=== PATIENT | female | born 1935 | race American Indian/Alaskan Native ===

== ENCOUNTER 2017-08-19 17:00 | Inpatient (IN) | payer OTHER, MEDICARE ==
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
[2017-08-19] MEDS ORDERED: Oxycodone/Acetaminophen 5/325 mg Tab PO STA (17:21)
[2017-08-19] MEDS ORDERED: Morphine 4 mg/ml ISec IVP STA (19:15)
[2017-08-19] MEDS ORDERED: Morphine 4 mg/ml ISec ONE (19:22)
[2017-08-19 19:54] LABS: BASO # 0.02 K/mm3 (0.0-2.0); BASO % 0.3 % (0.0-3.0); EOS % 0.5 % (1.5-5.0); GRAN # 4.91 (1.4-6.5); GRAN % 75.8 % (50.0-68.0); HEMOGLOBIN 11.5 g/dL (12.0-16.0); LYMPH # 1.2 (1.2-3.4); LYMPH % 18.8 % (22.0-35.0); MEAN CELL VOLUME 82.7 fl (80.0-105.0); MEAN CORPUSCULAR HEMOGLOBIN 28.5 pg (25.0-35.0); MEAN CORPUSCULAR HGB CONC 34.4 g/dl (31.0-37.0); MEAN PLATELET VOLUME 11.1 fl (7.0-11.0); MONO # 0.3 (0.1-0.6); MONO % 4.6 % (1.0-6.0); RBC 4.04 10^6/uL (3.5-6.1); RED CELL DISTRIBUTION WIDTH 14.3 % (11.5-14.5); WHITE BLOOD COUNT 6.5 10^3/ul (4.5-11.0)
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
[2017-08-19 20:12] LABS: ALB/GLOB RATIO 1.3 (1.1-1.8); ALBUMIN 4.4 g/dL (3.0-4.8); ALT/SGPT 30 U/L (7-56); AST/SGOT 35 U/L (14-36); BLOOD UREA NITROGEN 25 mg/dL (7-21); CALCIUM 10.1 mg/dL (8.4-10.5); GFR AFRICAN-AMERICAN > 60; GFR NON-AFRICAN AMERICAN > 60
[2017-08-19 20:28] LABS: INR 1.03 (0.93-1.08); PARTIAL THROMBOPLASTIN TIME 25.7 Seconds (25.1-36.5); PROTHROMBIN TIME 11.7 SECONDS (9.4-12.5)
--- NOTE | 2017-08-19 23:04 | CT ---
EXAM: CT Abdomen and Pelvis With Intravenous Contrast EXAM DATE/TIME: 08/19/2017 7:33 PM CLINICAL HISTORY: The patient age is 81 years old and is female; Pain; Abdominal pain; Acute; Additional info: Abdominal pain S/P [facility] Facility exam id and description: Ct abdpelciv abd pelvis iv contrast only TECHNIQUE: Axial computed tomography images of the abdomen and pelvis with intravenous contrast. All CT scans at this facility use one or more dose reduction techniques, viz.: automated exposure control; ma/kV adjustment per patient size (including targeted exams where dose is matched to indication; i.e. head); or iterative reconstruction technique. Coronal and sagittal reformatted images were created and reviewed. CONTRAST: 100 mL of OMNI 350 administered intravenously. COMPARISON: DX - HIP AVINASH W/WO PELVIS 3-4 VIEWS 2017-08-19 18:36 FINDINGS: Lower thorax: There is a small pericardial effusion. Atelectatic change is visualized at the left lung base. ABDOMEN: Liver: There is an area of low density within the medial aspect of the right hepatic lobe measuring 2.0 cm in length. In the setting of trauma, this is suggestive of a grade II hepatic laceration. A hepatic mass is also considered. Also within the right hepatic lobe, there is a 5 mm hypodense lesion, which is too small to characterize further. There is no visualized subcapsular hematoma involving the liver. Gallbladder and bile ducts: The gallbladder is distended with gallstones. Pancreas: Normal contour, without acute peripancreatic stranding. Spleen: No splenic laceration visualized. Adrenals: No mass. Kidneys and ureters: No hydronephrosis. No solid mass. Stomach and bowel: Sigmoid diverticula are identified, without acute inflammatory stranding of the adjacent mesentery. Appendix: The appendix is not visualized. PELVIS: Bladder: No mass. Reproductive: See below. ABDOMEN and PELVIS: Intraperitoneal space: There is a small amount of free fluid within the right posterior pelvis and right adnexa. Bones/joints: There is a fracture the right femoral neck with angulation of fracture fragments. Hypertrophic degenerative changes are noted within the spine. There is angulation of the distal sacrum, without a visualized acute fracture. Vasculature: There is no aneurysm or dissection of the aorta. Mild atherosclerotic changes are visualized. Lymph nodes: No enlarged lymph nodes. IMPRESSION: 1. There is an area of low density within the medial aspect of the right hepatic lobe measuring 2.0 cm in length. In the setting of trauma, this is suggestive of a grade II hepatic laceration. A hepatic mass is also considered. A follow-up abdominal/pelvis CT is recommended. 2. There is a fracture the right femoral neck with angulation of fracture fragments. 3. The gallbladder is distended with gallstones. 4. Diverticulosis. 5. There is a small amount of free fluid within the right posterior pelvis. 6. There is a small pericardial effusion. 7. Additional CT findings described above.
[2017-08-20] MEDS ORDERED: Dextrose 5%/0.45% NS 1,000 ML IV SCH ×2 (01:45→19:11)
[2017-08-20 02:01] VITALS: BMI 22.8
[2017-08-20 05:35] LABS: URINE BILIRUBIN NEGATIVE (NEGATIVE); URINE BLOOD TRACE-INTACT (NEGATIVE); URINE GLUCOSE (UA) NEGATIVE (NEGATIVE); URINE LEUKOCYTE ESTERASE NEGATIVE Leu/uL (NEGATIVE); URINE NITRATE NEGATIVE (NEGATIVE); URINE PROTEIN NEGATIVE mg/dL (<30 mg/dL); URINE UROBILINOGEN 0.2 E.U./dL (<1 E.U./dL)
[2017-08-20 05:36] LABS: URINE APPEARANCE CLEAR (CLEAR); URINE COLOR YELLOW (YELLOW)
[2017-08-20 05:56] LABS: URINE EPITHELIAL CELLS 0 - 2 /hpf (0-5); URINE RBC 0 - 2 /hpf (0-2); URINE WBC 0 - 2 /hpf (0-6)
--- NOTE | 2017-08-20 08:47 | RAD ---
PROCEDURE: Pelvis bilateral hips HISTORY: right hip pain COMPARISON: August 18, 2017. CT abdomen pelvis including hips TECHNIQUE: Standard protocol for this study/examination. FINDINGS: Subcapital fracture proximal right femur with impaction and angulation. Preserved femoral acetabular relationship. IMPRESSION: Subcapital fracture proximal right femur.
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
[2017-08-20 08:49] LABS: BASO # 0.02 K/mm3 (0.0-2.0); BASO % 0.1 % (0.0-3.0); EOS % 0.1 % (1.5-5.0); GRAN # 13.06 (1.4-6.5); GRAN % 91.8 % (50.0-68.0); LYMPH # 0.8 (1.2-3.4); LYMPH % 5.3 % (22.0-35.0); MEAN CELL VOLUME 81.4 fl (80.0-105.0); MEAN CORPUSCULAR HEMOGLOBIN 28.1 pg (25.0-35.0); MEAN CORPUSCULAR HGB CONC 34.5 g/dl (31.0-37.0); MEAN PLATELET VOLUME 10.3 fl (7.0-11.0); MONO # 0.4 (0.1-0.6); MONO % 2.7 % (1.0-6.0); PLATELET COUNT 175 10^3/uL (120.0-450.0); RBC 3.92 10^6/uL (3.5-6.1); RED CELL DISTRIBUTION WIDTH 14.2 % (11.5-14.5); WHITE BLOOD COUNT 14.2 10^3/ul (4.5-11.0)
--- NOTE | 2017-08-20 08:49 | RAD ---
PROCEDURE: CHEST RADIOGRAPH, 1 VIEW HISTORY: admission COMPARISON: Marcel FINDINGS: LUNGS: Clear. PLEURA: No pneumothorax or pleural fluid seen. CARDIOVASCULAR: No radiographic findings to suggest acute or significant cardiovascular disease. OSSEOUS STRUCTURES: Degenerative changes right shoulder with subchondral lucencies superiorly and medially. VISUALIZED UPPER ABDOMEN: Normal. OTHER FINDINGS: None. IMPRESSION: No active pulmonary disease.
[2017-08-20 09:00] LABS: ALB/GLOB RATIO 1.3 (1.1-1.8); ALBUMIN 4.1 g/dL (3.0-4.8); ALT/SGPT 33 U/L (7-56); AST/SGOT 32 U/L (14-36); BLOOD UREA NITROGEN 21 mg/dL (7-21); CALCIUM 9.5 mg/dL (8.4-10.5); GFR AFRICAN-AMERICAN > 60; GFR NON-AFRICAN AMERICAN > 60
[2017-08-20 10:31] LABS: BAND 4 % (0-2); LYMPHOCYTE 2 % (22.0-35.0); NEUTROPHIL 94 % (50.0-70.0); PLATELET ESTIMATE NORMAL (NORMAL)
--- NOTE | 2017-08-20 13:17 | CT ---
PROCEDURE: CT Chest without contrast HISTORY: pleural effusion/liver COMPARISON: None. TECHNIQUE: Contiguous axial images were obtained through the chest without intravenous contrast enhancement. Sagittal and coronal reconstructions were performed. Radiation dose (DLP): 171 mGy-cm. This CT exam was performed using one or more of the following dose reduction techniques: Automated exposure control, adjustment of the mA and/or kV according to patient size, and/or use of iterative reconstruction technique. FINDINGS: LUNGS: There is a 4 mm nodule in the superior segment of the right lower lobe. The finding is seen on image 65 series 3. The lungs are otherwise clear. MEDIASTINUM: Unremarkable thoracic aorta. No aneurysm. Normal sized heart. Main pulmonary artery unremarkable. No vascular congestion. No lymphadenopathy. PLEURA: No pleural fluid. No pneumothorax. BONES: No fracture. No destructive lesion. UPPER ABDOMEN: Grossly unremarkable. OTHER FINDINGS: None. IMPRESSION: 4 mm nodule in the superior segment of the right lower lobe. The study is otherwise unremarkable
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
--- NOTE | 2017-08-20 18:14 | CARD ---
APPROVED REPORT EXAM: Two-dimensional and M-mode echocardiogram with Doppler and color Doppler. INDICATION Pre-Op 2D DIMENSIONS Left Atrium (2D)3.9 (1.6-4.0cm)IVSd0.7 (0.7-1.1cm) LVDd3.4 (3.9-5.9cm)PWd0.8 (0.7-1.1cm) LVDs2.1 (2.5-4.0cm)FS (%) 37.0 % LVEF (%)68.2 (>50%) M-Mode DIMENSIONS Aortic Root2.30 (2.2-3.7cm)Aortic Cusp Exc.1.60 (1.5-2.0cm) Aortic Valve AoV Peak Pmpkqbev606.0cm/[place]enn[place] Peak GR.18mmHg Mitral Valve E/A ratio0.0 TDI E/Lateral E'0.0E/Medial E'0.0 Tricuspid Valve TR Peak [id number] [id number] Peak Gr.55mmHg [id number] LEFT VENTRICLE The left ventricle is normal size. There is normal left ventricular wall thickness. The left ventricular function is normal.EF-65% There is normal LV segmental wall motion. Transmitral Doppler flow pattern is Grade III-reversible restrictive diastolic dysfunction. No left ventricle thrombus noted on this study. There is no ventricular septal defect visualized. There is no left ventricular aneurysm. There is no mass noted in the left ventricle. RIGHT VENTRICLE The right ventricle is mildly to moderately dilated. There is normal right ventricular wall thickness. Systolic function is mildly reduced. ATRIA The left atrium is mildly dilated in Long axis The right atrium is mildly dilated in long axis The interatrial septum is intact with no evidence for an atrial septal defect. AORTIC VALVE The aortic valve is thickened but opens well. The aortic valve is moderately sclerotic. No aortic regurgitation is present. There is no aortic valvular stenosis. There is no aortic valvular vegetation. MITRAL VALVE The mitral valve is thickened but opens well. Mitral regurgitation is mild to moderate. There is no mitral valve stenosis. There is no evidence of mitral valve prolapse. TRICUSPID VALVE The tricuspid valve leaflets are thickened , but open well. There is moderate tricuspid regurgitation.RVSP-65 mmof Hg There is no tricuspid valve stenosis. There is no tricuspid valve prolapse or vegetation. PULMONIC VALVE The pulmonic valve is not well visualized. GREAT VESSELS The aortic root is normal in size. The ascending aorta is normal in size. The pulmonary artery is normal. The IVC is normal in size and collapses >50% with inspiration. PERICARDIAL EFFUSION There is no pleural effusion. There is a small pericardial effusion. <Conclusion> The left ventricle is normal size. There is normal left ventricular wall thickness. There is no aortic valvular stenosis. Mitral regurgitation is mild to moderate. There is moderate tricuspid regurgitation.RVSP-65 mmof Hg The IVC is normal in size and collapses >50% with inspiration. There is a small pericardial effusion. No Vegetatiomn or thrombus noted.
[2017-08-20] MEDS ORDERED: Oxycodone/Acetaminophen 5/325 mg Tab PO PRN (19:11)
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
[2017-08-21 07:22] LABS: BASO # 0.03 K/mm3 (0.0-2.0); BASO % 0.4 % (0.0-3.0); EOS # 0.3 (0.0-0.7); EOS % 4.3 % (1.5-5.0); GRAN # 5.64 (1.4-6.5); GRAN % 76.7 % (50.0-68.0); HEMOGLOBIN 11.2 g/dL (12.0-16.0); LYMPH % 14.1 % (22.0-35.0); MEAN CELL VOLUME 80.9 fl (80.0-105.0); MEAN CORPUSCULAR HEMOGLOBIN 27.8 pg (25.0-35.0); MEAN CORPUSCULAR HGB CONC 34.4 g/dl (31.0-37.0); MEAN PLATELET VOLUME 10.8 fl (7.0-11.0); MONO # 0.3 (0.1-0.6); MONO % 4.5 % (1.0-6.0); RBC 4.03 10^6/uL (3.5-6.1); RED CELL DISTRIBUTION WIDTH 14.2 % (11.5-14.5); WHITE BLOOD COUNT 7.4 10^3/ul (4.5-11.0)
[2017-08-21 07:40] LABS: ALB/GLOB RATIO 1.1 (1.1-1.8); ALBUMIN 3.8 g/dL (3.0-4.8); ALT/SGPT 30 U/L (7-56); AST/SGOT 32 U/L (14-36); BLOOD UREA NITROGEN 10 mg/dL (7-21); CALCIUM 9.2 mg/dL (8.4-10.5); GFR AFRICAN-AMERICAN > 60; GFR NON-AFRICAN AMERICAN > 60
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
[2017-08-21] MEDS ORDERED: Enoxaparin 30 mg Syringe SC ONE (11:00)
[2017-08-21] MEDS: POLYETHYLENE GLYCOL 3350 17 GM/Dose PACKET PO SCH ×2 (11:23→18:40)
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
[2017-08-21] MEDS ORDERED: Potassium Chloride 20 mEq ER Tab PO ONE (19:40)
--- NOTE | 2017-08-22 02:11 | PN ---
DATE: 08/22/2017 SUBJECTIVE: The patient has no complaints of chest pain, shortness of breath, or headaches. PHYSICAL EXAMINATION GENERAL: In no acute distress. VITAL SIGNS: Temperature is 98.2, pulse of 80, blood pressure 120/74, and respirations 20. HEENT: Moist mucous membranes. No ulcer or thrush noted. NECK: Supple. No JVD. LUNGS: Have a fair airflow with few rhonchi. HEART: S1 and S2. ABDOMEN: Soft, nontender. No organomegaly. EXTREMITIES: There is no edema. NEUROLOGIC: Awake, alert, follows simple commands. LABORATORY DATA: White count of 7.4 and hemoglobin 11.2. Creatinine is 0.7 and potassium is 3.5. ASSESSMENT: 1. Subcapital fracture of the right proximal humerus. 2. A 4-mm nodule of the right lower lobe. 3. Hypertension. 4. . 5. Diverticulosis. PLAN: The patient is currently comfortable. I appreciate the inputs from Dr. Cramer and Dr. Santiago. The patient's son had requested transfer to [facility] under Dr. Wise. I spoke with Dr. Funes; he was going to speak with the physician to see if he is going to accept the patient. The patient is on IV fluids and is on Colace for constipation; also, is on metoprolol. The patient is on Norvasc for hypertension. He is receiving Pepcid. The patient blood pressure is stable. We will discontinue the patient's IV fluids. Nadeem Mulligan MD
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
[2017-08-22 07:30] LABS: BASO # 0.02 K/mm3 (0.0-2.0); BASO % 0.3 % (0.0-3.0); EOS # 0.4 (0.0-0.7); GRAN # 5.08 (1.4-6.5); GRAN % 70.4 % (50.0-68.0); HEMOGLOBIN 11.7 g/dL (12.0-16.0); LYMPH # 1.1 (1.2-3.4); LYMPH % 15.4 % (22.0-35.0); MEAN CELL VOLUME 81.8 fl (80.0-105.0); MEAN CORPUSCULAR HEMOGLOBIN 27.7 pg (25.0-35.0); MEAN CORPUSCULAR HGB CONC 33.9 g/dl (31.0-37.0); MEAN PLATELET VOLUME 11.3 fl (7.0-11.0); MONO # 0.6 (0.1-0.6); MONO % 7.9 % (1.0-6.0); RBC 4.22 10^6/uL (3.5-6.1); RED CELL DISTRIBUTION WIDTH 14.3 % (11.5-14.5); WHITE BLOOD COUNT 7.2 10^3/ul (4.5-11.0)
[2017-08-22 07:43] LABS: ALB/GLOB RATIO 1.1 (1.1-1.8); ALBUMIN 3.8 g/dL (3.0-4.8); ALT/SGPT 22 U/L (7-56); AST/SGOT 29 U/L (14-36); BLOOD UREA NITROGEN 9 mg/dL (7-21); CALCIUM 9.4 mg/dL (8.4-10.5); GFR AFRICAN-AMERICAN > 60; GFR NON-AFRICAN AMERICAN > 60; MAGNESIUM 2.1 mg/dL (1.7-2.2)
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
[2017-08-22] MEDS: POLYETHYLENE GLYCOL 3350 17 GM/Dose PACKET PO SCH (09:56)
[2017-08-22] MEDS ORDERED: Midazolam 2 MG/2 ML VIAL ONE (12:38)
[2017-08-22] MEDS ORDERED: Rocuronium 10 mg/ml (5 ml) ONE (12:40)
[2017-08-22] MEDS ORDERED: Propofol 10 mg/ml Inj (20 ML) ONE (12:44)
[2017-08-22] MEDS ORDERED: ePHEDrine 50 mg/ml Inj ONE (13:09)
[2017-08-22] MEDS ORDERED: Bupivacaine 0.5% Inj(30mL) ONE (13:19)
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
[2017-08-22] MEDS ORDERED: Vancomycin 1 g Inj ONE ×2 (14:23→14:29)
[2017-08-22] MEDS ORDERED: Neostigmine Methylsulfate 3mg/3ml Syringe IV ONE (14:23)
[2017-08-22] MEDS ORDERED: Glycopyrrolate 0.2 mg/ml (2ml vial) ONE (14:50)
[2017-08-22] MEDS ORDERED: Lactated Ringer's 1,000 ML IV SCH (15:15)
[2017-08-22] MEDS: Morphine 2 mg/ml ISec IVP PRN ×2 (15:45→16:04)
[2017-08-22] MEDS ORDERED: Morphine 2 mg/ml ISec ONE ×2 (15:47→16:04)
[2017-08-22 16:19] LABS: BASO # 0.03 K/mm3 (0.0-2.0); BASO % 0.3 % (0.0-3.0); EOS # 0.3 (0.0-0.7); EOS % 2.9 % (1.5-5.0); GRAN # 7.93 (1.4-6.5); GRAN % 83.4 % (50.0-68.0); HEMOGLOBIN 10.6 g/dL (12.0-16.0); LYMPH # 0.8 (1.2-3.4); LYMPH % 8.1 % (22.0-35.0); MEAN CELL VOLUME 81.4 fl (80.0-105.0); MEAN CORPUSCULAR HEMOGLOBIN 27.7 pg (25.0-35.0); MEAN CORPUSCULAR HGB CONC 34.1 g/dl (31.0-37.0); MEAN PLATELET VOLUME 11.6 fl (7.0-11.0); MONO # 0.5 (0.1-0.6); MONO % 5.3 % (1.0-6.0); RBC 3.82 10^6/uL (3.5-6.1); RED CELL DISTRIBUTION WIDTH 14.1 % (11.5-14.5); WHITE BLOOD COUNT 9.5 10^3/ul (4.5-11.0)
--- NOTE | 2017-08-22 17:49 | RAD ---
PROCEDURE: Postop right hip HISTORY: rt hip prosthesis COMPARISON: Preoperative study 08/19/2017 TECHNIQUE: Standard protocol for this study/examination single AP view. FINDINGS: Satisfactory position and alignment of components of right JUAN LUIS. Soft tissue findings primarily soft tissue swelling and subcutaneous air at the operative site IMPRESSION: Satisfactory postoperative status.
[2017-08-22] MEDS: ceFAZolin 1 gm in NS 1 GM/100 ML BAG IVPB SCH (20:41)
--- NOTE | 2017-08-22 22:12 | PN ---
DATE: 08/22/2017 SUBJECTIVE: The patient has no complaints of any chest pain, shortness of breath. She is comfortable. I saw her early this morning prior to her surgical procedure. PHYSICAL EXAMINATION: VITAL SIGNS: Temperature is 98.4, pulse of 73, blood pressure is 97/63, respirations 16. GENERAL: The patient is lying in bed, flat, comfortable. HEENT: No oral lesion. Anicteric sclerae. Moist mucosa. NECK: No JVD, adenopathy, or thyromegaly. CARDIOVASCULAR: S1 and S2, regular. No murmurs, rubs, or gallops. LUNGS: Clear to auscultation bilaterally. No wheeze, rales, or rhonchi. ABDOMEN: Bowel sounds are positive, soft, nontender and nondistended. EXTREMITIES: No cyanosis, clubbing or edema. LABORATORY DATA: White count of 9.5, hemoglobin 10.6. ASSESSMENT: 1. Right hip fracture. 2. A 4-mm nodule in the right lower lobe. 3. Hypertension. 4. Diverticulosis. 5. Liver laceration. PLAN: The patient has 4-mm liver nodule. I will get Pulmonary to evaluate the patient. The patient is going to be on Colace for constipation. He is on Dilaudid for pain. The patient is on Lovenox for DVT prophylaxis. The patient will need to go to subacute rehab. We will get evaluation by Dr. Cruz. Nadeem Mulligan MD
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
[2017-08-23] MEDS: ceFAZolin 1 gm in NS 1 GM/100 ML BAG IVPB SCH (04:39)
[2017-08-23 07:51] LABS: ALB/GLOB RATIO 1.1 (1.1-1.8); ALBUMIN 3.2 g/dL (3.0-4.8); ALT/SGPT 33 U/L (7-56); AST/SGOT 37 U/L (14-36); BLOOD UREA NITROGEN 20 mg/dL (7-21); GFR AFRICAN-AMERICAN > 60; GFR NON-AFRICAN AMERICAN > 60
[2017-08-23] MEDS: HYDROmorphone 0.5 mg/0.5 ml ISec SC PRN ×3 (08:31→23:17)
[2017-08-23] MEDS: POLYETHYLENE GLYCOL 3350 17 GM/Dose PACKET PO SCH ×3 (09:52→17:29)
[2017-08-23 10:11] LABS: EOS % 0.4 % (1.5-5.0); GRAN # 6.19 (1.4-6.5); GRAN % 73.9 % (50.0-68.0); HEMOGLOBIN 9.2 g/dL (12.0-16.0); LYMPH # 1.2 (1.2-3.4); LYMPH % 14.3 % (22.0-35.0); MEAN CELL VOLUME 81.2 fl (80.0-105.0); MEAN CORPUSCULAR HEMOGLOBIN 27.9 pg (25.0-35.0); MEAN CORPUSCULAR HGB CONC 34.3 g/dl (31.0-37.0); MEAN PLATELET VOLUME 11.5 fl (7.0-11.0); MONO % 11.4 % (1.0-6.0); RBC 3.3 10^6/uL (3.5-6.1); RED CELL DISTRIBUTION WIDTH 14.2 % (11.5-14.5); WHITE BLOOD COUNT 8.4 10^3/ul (4.5-11.0)
[2017-08-23] MEDS: Enoxaparin 30 mg Syringe SC SCH (10:27)
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
[2017-08-23] MEDS ORDERED: Enoxaparin 30 mg Syringe SC SCH (15:30)
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
[2017-08-24] MEDS: HYDROmorphone 0.5 mg/0.5 ml ISec SC PRN (05:40)
[2017-08-24 07:28] LABS: BASO # 0.05 K/mm3 (0.0-2.0); BASO % 0.5 % (0.0-3.0); EOS # 0.4 (0.0-0.7); EOS % 3.5 % (1.5-5.0); GRAN # 6.99 (1.4-6.5); GRAN % 68.2 % (50.0-68.0); HEMOGLOBIN 9.6 g/dL (12.0-16.0); LYMPH # 1.6 (1.2-3.4); LYMPH % 15.2 % (22.0-35.0); MEAN CELL VOLUME 80.8 fl (80.0-105.0); MEAN CORPUSCULAR HGB CONC 34.7 g/dl (31.0-37.0); MEAN PLATELET VOLUME 11.4 fl (7.0-11.0); MONO # 1.3 (0.1-0.6); MONO % 12.6 % (1.0-6.0); RBC 3.43 10^6/uL (3.5-6.1); WHITE BLOOD COUNT 10.3 10^3/ul (4.5-11.0)
[2017-08-24 08:11] LABS: ALBUMIN 3.2 g/dL (3.0-4.8); ALT/SGPT 27 U/L (7-56); AST/SGOT 37 U/L (14-36); BLOOD UREA NITROGEN 31 mg/dL (7-21); GFR AFRICAN-AMERICAN > 60; GFR NON-AFRICAN AMERICAN 53
[2017-08-24] MEDS ORDERED: Oxycodone/Acetaminophen 5/325 mg Tab PO PRN (09:23)
[2017-08-24] MEDS: POLYETHYLENE GLYCOL 3350 17 GM/Dose PACKET PO SCH ×3 (10:52→20:38)
[2017-08-24] MEDS: Enoxaparin 30 mg Syringe SC SCH (10:59)
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
[2017-08-24 21:45] VITALS: RESP 18
[2017-08-25 07:36] LABS: ALBUMIN 3.1 g/dL (3.0-4.8); ALT/SGPT 43 U/L (7-56); AST/SGOT 45 U/L (14-36); BLOOD UREA NITROGEN 26 mg/dL (7-21); CALCIUM 8.9 mg/dL (8.4-10.5); GFR AFRICAN-AMERICAN > 60; GFR NON-AFRICAN AMERICAN > 60
[2017-08-25 07:55] VITALS: BP 114/71; PULSE 68; TEMP 97.3; O2SAT 100
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
--- NOTE | 2017-08-25 10:47 | PN ---
DATE: 08/25/2017 PULMONARY NOTE SUBJECTIVE: The patient appears very comfortable this morning. She is not short of breath at rest. OBJECTIVE: VITALS: Temperature is 97.3, pulse 68, respirations 18, blood pressure 114/71. Oxygen saturation on nasal cannula is 100%. HEENT: Normocephalic, atraumatic. No JVD. CARDIOVASCULAR: Systolic ejection murmur at the lower left sternal border. No S3 gallop. LUNGS: Clear bilaterally. EXTREMITIES: No clubbing, cyanosis, or edema is noted in the lower extremities. The patient is status post right hip surgery. GI: Abdomen is soft, nontender, and nondistended. Bowel sounds are positive. SKIN: No acute rash. NEUROLOGIC: Limited at the present time. IMPRESSION: 1. Right hip fracture, status post repair. 2. 4 mm pulmonary nodule - right lower lobe. 3. Hypertension. 4. Diverticulosis. 5. Mild anemia. PLAN: The patient appears very comfortable this morning. She is not short of breath at rest. She does state to feeling much better overall. On physical exam, her lungs are clear. Oxygen saturation on nasal cannula is 100%. I did review the CT scan of the chest - done on 08/20/2017. A very small solitary pulmonary nodule is present. I have given the patient my name/information for a followup appointment. I did impress upon her that the solitary pulmonary nodule should be followed. At this point in time, no additional pulmonary intervention is needed or warranted. Please call me for any additional pulmonary questions or problems for this patient. Again, hopefully, she will follow up with us in the office. I will discuss the above with the attending physician. Quintin Cruz MD MATHEW
[2017-08-25] MEDS: POLYETHYLENE GLYCOL 3350 17 GM/Dose PACKET PO SCH (11:56)
[2017-08-25] MEDS: Enoxaparin 30 mg Syringe SC SCH (11:58)
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
== END 2017-08-25 18:04 | DRG 956 ==
LOC: ED 17:00 → ERH 19:34 → 5RSO 21:32 → 5RNO 08-24 08:04
PROVIDERS: ADMIT Internal Medicine; ATTEND Internal Medicine
PROC: 0SRR0JZ Replacement of Right Hip Joint, Femoral Surface with Synthetic Substitute, Open Approach (ICD-10-PCS; principal; 2017-08-22 12:00)
DX: S72.011A Unspecified intracapsular fracture of right femur, initial encounter for closed fracture (principal); S36.115A Moderate laceration of liver, initial encounter; I27.20 Pulmonary hypertension, unspecified; I10 Essential (primary) hypertension; V03.10XA Pedestrian on foot injured in collision with car, pick-up truck or van in traffic accident, initial encounter; R91.1 Solitary pulmonary nodule; K57.30 Diverticulosis of large intestine without perforation or abscess without bleeding; I49.3 Ventricular premature depolarization; I08.1 Rheumatic disorders of both mitral and tricuspid valves; K59.00 Constipation, unspecified; D64.9 Anemia, unspecified; K80.20 Calculus of gallbladder without cholecystitis without obstruction; Z87.11 Personal history of peptic ulcer disease; Z79.82 Long term (current) use of aspirin; Z79.899 Other long term (current) drug therapy; Y93.01 Activity, walking, marching and hiking; Y92.410 Unspecified street and highway as the place of occurrence of the external cause